=== PATIENT | female | born 1955 | race Caucasian/White ===

== ENCOUNTER 2017-05-13 11:44 | Outpatient (CLI) ==
--- NOTE | 2017-05-13 12:27 | DI ---
EXAM: Five views of the lumbar spine HISTORY: Lower back pain with sciatica. COMPARISON: Lumbar spine x-ray 07/06/[address] abdomen pelvis 08/16/2013 FINDINGS: Vertebral bodies demonstrate no acute compression fracture or subluxation. There are scatt ered anterior disc osteophytes and posterior facet arthropathy. There is mild narrowing of the lumbo sacral junction. There is no lytic or blastic lesion. Soft tissues are normal. There is scattered a therosclerotic disease in the abdomen pelvis. IMPRESSION: 1. No acute compression fracture or subluxation. 2. No significant change in scattered degenerative disease. 3. 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
== END 2017-05-13 11:45 | disposition home or self-care (01) ==
LOC: RAD 11:44
PROVIDERS: ATTEND Family Medicine
DX: M54.5 Low back pain (principal); G89.29 Other chronic pain

== ENCOUNTER 2017-05-18 09:51 | Outpatient (CLI) ==
--- NOTE | 2017-05-18 22:47 | MRI ---
EXAM: Lumbar spine MRI without contrast. HISTORY: Low back pain. COMPARISON: Lumbar spine radiographs 05/13/[address] abdomen and pelvis 08/16/2013. TECHNIQUE: Multiplanar, multisequence MR images were acquired of the lumbar spine without intravenou s contrast. FINDINGS: Five non-rib bearing lumbar vertebra are present. The lumbar vertebrae normal in height a nd alignment is near anatomic. The lumbar vertebra are normal in height and intrinsic bone marrow si gnal. There is a nonaggressive primary osseous lesion and L3 with a slightly stippled appearance and a rim of dark T1 and T2 signal. This may represent an atypical hemangioma. There is 2 mm degenerat foster anterolisthesis of L4 on L5. There is minor lumbar ventral spondylosis and there is mild irregul ar concavity of the endplates from T12-L1 to L4-5 and there are small chronic Schmorl's nodes from T1 2 to L3. There is mild L3-4 and L5-S1 disc space narrowing. Conus medullaris ends at L1 and has nor mal configuration and signal intensity. The partially visualized liver, spleen and kidneys are unremarkable. Several descending colonic dive rticula are present without diverticulitis. T12-L1: The intervertebral disc is normal. L1-2: The intervertebral disc is normal. L2-3: There is a minor disc bulge without central canal stenosis or foraminal stenosis. L3-4: There is a minor disc bulge, d mild bilateral facet arthropathy and mild ligamentum flavum hype rtrophy without central canal stenosis or foraminal stenosis. L4-5: There is a mild disc bulge and mild bilateral hypertrophic facet arthropathy and ligamentum fl avum hypertrophy, greater on the left. There is a tiny right facet effusion. There is mild bilatera l foraminal stenosis. L5-S1: There is a minor disc bulge and small central disc protrusion. There is minor right facet ar thropathy without foraminal stenosis or central canal stenosis. IMPRESSION: 1. Mild lower thoracic and lumbar degenerative spondylosis with endplate irregularity and small residential designer hudson Schmorl's nodes from T12 to L3. 2. Small central disc protrusion L5-S1. 3. 2 mm degenerative anterolisthesis L4 on L5. 4. Minor colonic diverticulosis without diverticulitis.
== END 2017-05-18 09:52 | disposition home or self-care (01) ==
LOC: RAD 09:51
PROVIDERS: ATTEND Family Medicine
DX: M54.5 Low back pain (principal)